=== PATIENT | male | born 1990 | race Caucasian/White ===

== ENCOUNTER 2023-11-14 22:03 | Emergency (ER) | payer MEDICAID ==
[~2023-11-14] VITALS: Ht 175.3 cm; Wt 70.3 kg
[2023-11-14 22:08] VITALS: BP_SYST 118; PULSE 80; RESP 19; TEMP 97.9; O2SAT 97
[2023-11-14] MEDS ORDERED: ceFAZolin SODIUM 1 GM VIAL ONE (23:15)
[2023-11-14] MEDS: KETOROLAC TROMETHAMINE 60 MG/2 ML VIAL IM ONE (23:30)
[2023-11-14] MEDS: ceFAZolin SODIUM 2 GM VIAL IM ONE (23:30)
[2023-11-14] MEDS: MORPHINE 4 MG INJ. 4 MG/ML VIAL IM ONE (23:39)
[2023-11-14] MEDS ORDERED: CEPH-548 PO (23:49)
[2023-11-14] MEDS ORDERED: HYDR-3917 PO (23:49)
[2023-11-14] MEDS ORDERED: NAPR-1172 PO (23:49)
[2023-11-14 23:56] VITALS: BP_SYST 118; PULSE 80; RESP 19; TEMP 97.9; O2SAT 97
== END 2023-11-14 23:54 | disposition home or self-care (01) ==
LOC: SED 22:03
DX: L03.032 Cellulitis of left toe (principal); Z79.899 Other long term (current) drug therapy
CPT/HCPCS: 99284; 96372; J0690; J2270; J1885